=== PATIENT | female | born 1945 | race Caucasian/White ===

== ENCOUNTER → 2017-07-13 | Outpatient (CLI) | payer MEDICARE, OTHER ==
--- NOTE | 2017-07-13 12:01 | RADIOLOGY REPORT PS360 ---
KNEE-3 VIEWS-RT HISTORY: RT KNEE PAIN ORDERING PHYSICIAN: Sindi Cutler MD PATIENT AGE: 72 years COMPARISON: None FINDINGS: Mild osteoarthritic change of the medial compartment and patellofemoral joint. No fracture or dislocation. There is a small suprapatellar effusion. No lytic or blastic change. IMPRESSION: Mild osteoarthritis with small knee joint effusion
== END ==
LOC: RAD 08:37
DX: M25.562 Pain in left knee (principal)